=== PATIENT | female | born 2000 | race Two or more races ===

== ENCOUNTER 2024-11-17 16:06 | Emergency (ER) | payer OTHER ==
[~2024-11-17] VITALS: Ht 149.9 cm; Wt 52.6 kg
[2024-11-17] MEDS ORDERED: PRENATAL + DHA1 EAC1 (16:57)
[2024-11-17] MEDS ORDERED: FOLIC ACID20 MG (16:58)
[2024-11-17 17:26] LABS: HEMATOCRIT 36.2 % (36.0-45.00); HEMOGLOBIN 12.5 g/dL (12.0-15.00); MEAN CELL VOLUME 88.5 fL (80.00-100.00); MEAN CORPUSCULAR HEMOGLOBIN 30.6 pg (27.00-32.0); MEAN CORPUSCULAR HGB CONC 34.6 g/dl (32.0-36.0); PLATELET COUNT 261 K/uL (150-450); RED BLOOD COUNT 4.09 M/uL (4.00-6.00); RED CELL DISTRIBUTION WIDTH 12.6 % (11.5-14.5)
[2024-11-17 17:58] LABS: URINE APPEARANCE Turbid; URINE BILIRRUBIN Negative (NEGATIVE); URINE COLOR Yellow; URINE GLUCOSE Negative (NEGATIVE); URINE KETONE Negative (NEGATIVE); URINE LEUKOCYTE Moderate; URINE NITRATE Negative; URINE PROTEIN Negative (NEGATIVE)
[2024-11-17 18:01] LABS: URINE BACTERIA 1331.5 uL (0.0-1933); URINE EPITHELIAL CELLS 42.1 uL (0.0-38.8); URINE RBC 61.8 uL (0.0-20.8); URINE WBC 104.4 uL (0.0-23.2)
[2024-11-17 18:04] LABS: ALBUMIN 3.7 gm/dL (3.4-5.0); BILIRUBIN TOTAL 0.68 mg/dL (0.3-1.2); CREATININE SERUM 0.65 mg/dL (0.55-1.02); GFR 115.06; GLOBULINA 3.6 G/DL (2.4-3.5); POTASSIUM 3.81 mEq/L (3.5-5.1); TOTAL PROTEIN 7.3 gm/dL (6.4-8.2)
[2024-11-17 18:36] LABS: URINE BLOOD Trace; URINE CRYSTALS MODERATE /HPF; URINE MUCUS SCANT
[2024-11-17 18:37] LABS: URINE YEAST FEW /hpf
[2024-11-17] MEDS ORDERED: AMOX1TAB5 PO (19:04)
[2024-11-17] MEDS ORDERED: PEPCID AC20 MG PO (19:04)
== END 2024-11-17 19:36 | disposition home or self-care (01) ==
LOC: ER 16:08
PROVIDERS: General Practice
DX: O23.41 Unspecified infection of urinary tract in pregnancy, first trimester (principal); N39.0 Urinary tract infection, site not specified; Z3A.01 Less than 8 weeks gestation of pregnancy

== ENCOUNTER 2025-02-03 23:57 | Emergency (ER) | payer OTHER ==
[~2025-02-03] VITALS: Ht 152.4 cm; Wt 55.8 kg
[~2025-02-03 23:57] MED LIST: AMOX1TAB5 PO; FOLIC ACID20 MG; PEPCID AC20 MG PO; PRENATAL + DHA1 EAC1
[2025-02-04 02:20] LABS: BASO % 0.3 % (0.1-1.2); EOS # 0.35 (0.04-0.54); HEMATOCRIT 30.1 % (34.1-44.9); HEMOGLOBIN 10.4 g/dL (11.2-15.7); LYMPH # 2.56 (1.18-3.74); MEAN CORPUSCULAR HEMOGLOBIN 30.4 pg (25.6-32.2); MONO # 0.96 (0.24-0.82); MONO % 8.2 % (4.7-12.5); NEUT % 65.3 % (34.0-71.1); PLATELET COUNT 246 K/uL (163-369); RED BLOOD COUNT 3.42 M/uL (3.93-5.22); RED CELL DISTRIBUTION WIDTH 12.5 % (11.6-14.4)
[2025-02-04 02:37] LABS: COVID-19 AG NEGATIVE (NEGATIVE); INFLUENZA A AG NEGATIVE (NEGATIVE)
== END 2025-02-04 03:14 | disposition home or self-care (01) ==
LOC: ER 23:57
DX: J06.9 Acute upper respiratory infection, unspecified (principal); Z20.822 Contact with and (suspected) exposure to COVID-19

== ENCOUNTER 2025-02-16 17:18 | Outpatient (CLI) | payer OTHER | END 2025-02-16 17:25 | disposition home or self-care (01) | LOC: NST 17:18 | PROVIDERS: ATTEND Obstetrics & Gynecology | DX: Z34.83 Encounter for supervision of other normal pregnancy, third trimester (principal) ==

== ENCOUNTER 2025-06-01 16:01 | Outpatient (CLI) | payer OTHER ==
[2025-06-01 15:05] VITALS: BP 107/74
[2025-06-01] MEDS ORDERED: RINGERS SOLUTION,LACTATED 1,000 ML IV SCH (16:30)
[2025-06-01 17:06] LABS: BASO % 0.3 % (0.1-1.2); EOS # 0.10 (0.04-0.54); EOS % 1.0 % (0.7-7.0); LYMPH # 1.98 (1.18-3.74); LYMPH % 19.2 % (19.3-53.1); MEAN PLATELET VOLUME 11.10 fl (9.4-12.4); MONO # 0.91 (0.24-0.82); MONO % 8.8 % (4.7-12.5); NEUT # 7.06 (1.56-6.13); NEUT % 68.4 % (34.0-71.1); RED CELL DISTRIBUTION WIDTH 13.2 % (11.6-14.4)
[2025-06-01 17:07] LABS: URINE APPEARANCE Cloudy; URINE BILIRRUBIN Negative (NEGATIVE); URINE BLOOD Negative; URINE COLOR Yellow; URINE GLUCOSE Negative (NEGATIVE); URINE KETONE Trace (NEGATIVE); URINE LEUKOCYTE Moderate; URINE NITRATE Negative; URINE PROTEIN Trace (NEGATIVE); URINE UROBILINOGEN 0.2 E.U./dl
[2025-06-01 17:11] LABS: URINE BACTERIA 5499.5 uL (0.0-1933); URINE EPITHELIAL CELLS 96.4 uL (0.0-38.8); URINE RBC 13.0 uL (0.0-20.8); URINE WBC 104.4 uL (0.0-23.2)
[2025-06-01] MEDS ORDERED: PRENATABS RX T1 EACH PO (17:21)
[2025-06-01 17:34] LABS: URINE CAST 0.43 uL (0.0-1.40)
[2025-06-01 17:35] LABS: URINE CRYSTALS MANY /HPF
[2025-06-01] MEDS ORDERED: CEFAZOLIN SODIUM 1,000 MG VIAL ONE (18:09)
[2025-06-01] MEDS ORDERED: CEFAZOLIN SODIUM 1,000 MG VIAL IV SCH (18:30)
[2025-06-01 19:34] VITALS: BP 112/75
[2025-06-01 23:33] VITALS: BP 92/50
[2025-06-02 04:14] VITALS: BP 88/50
[2025-06-02 06:36] VITALS: BP 92/60; O2SAT 97
[2025-06-02 10:36] VITALS: BP 92/60
== END 2025-06-02 10:56 | disposition home or self-care (01) ==
LOC: OBS/DEL 16:01
PROVIDERS: Student in an Organized Health Care Education/Training Program; ATTEND Specialist
DX: O98.813 Other maternal infectious and parasitic diseases complicating pregnancy, third trimester (principal); O23.43 Unspecified infection of urinary tract in pregnancy, third trimester; N39.0 Urinary tract infection, site not specified; Z3A.35 35 weeks gestation of pregnancy

== ENCOUNTER 2025-06-20 01:58 | Inpatient (IN) | payer OTHER ==
[~2025-06-20] VITALS: Ht 149.9 cm; Wt 63.5 kg
[2025-06-20 01:29] VITALS: BP 107/72
[~2025-06-20 01:58] MED LIST changes: +PRENATABS RX T1 EACH PO
[2025-06-20] MEDS ORDERED: RINGERS SOLUTION,LACTATED 1,000 ML IV SCH (02:15)
[2025-06-20 03:03] LABS: BASO % 0.2 % (0.1-1.2); EOS # 0.07 (0.04-0.54); EOS % 0.6 % (0.7-7.0); LYMPH # 2.25 (1.18-3.74); LYMPH % 19.8 % (19.3-53.1); MEAN PLATELET VOLUME 11.60 fl (9.4-12.4); MONO # 0.96 (0.24-0.82); MONO % 8.4 % (4.7-12.5); NEUT # 7.92 (1.56-6.13); NEUT % 69.7 % (34.0-71.1); RED CELL DISTRIBUTION WIDTH 12.7 % (11.6-14.4)
[2025-06-20 03:05] LABS: URINE APPEARANCE Clear; URINE BILIRRUBIN Negative (NEGATIVE); URINE BLOOD Negative; URINE COLOR Yellow; URINE GLUCOSE Negative (NEGATIVE); URINE KETONE Negative (NEGATIVE); URINE LEUKOCYTE Trace; URINE NITRATE Negative; URINE PROTEIN Negative (NEGATIVE); URINE UROBILINOGEN 0.2 E.U./dl
[2025-06-20 03:09] LABS: URINE BACTERIA 115.1 uL (0.0-1933); URINE EPITHELIAL CELLS 7.2 uL (0.0-38.8); URINE WBC 16.1 uL (0.0-23.2)
[2025-06-20 03:12] LABS: URINE CAST 0.14 uL (0.0-1.40); URINE RBC 0.8 uL (0.0-20.8)
[2025-06-20 03:21] LABS: INR < 0.93
[2025-06-20] MEDS ORDERED: MORPHINE SULFATE 4 MG/ML CARTRIDGE IV STA (04:01)
[2025-06-20 07:28] VITALS: BP 111/71
[2025-06-20 08:44] VITALS: BP 111/71
[2025-06-20] MEDS ORDERED: OXYTOCIN 500 ML IV SCH (09:00)
[2025-06-20] MEDS ORDERED: MORPHINE SULFATE 4 MG/ML CARTRIDGE IV ONE (10:30)
[2025-06-20 11:56] VITALS: BP 116/78
[2025-06-20] MEDS ORDERED: ERYTHROMYCIN BASE OPHT 1GM EACH TUBE OP ONE ×2 (12:50→16:15)
[2025-06-20] MEDS ORDERED: OXYTOCIN 20 UNITS/1000ML RL PIGGYBAG IV ONE (12:51)
[2025-06-20] MEDS ORDERED: CHLORHEXIDINE GLUCONATE 120 ML BOTTLE TOP ONE ×2 (12:51→16:15)
[2025-06-20] MEDS ORDERED: LIDOCAINE HCL 1% 10ML VIAL ONE (12:51)
[2025-06-20] MEDS ORDERED: TERBUTALINE SULFATE 1 MG/ML AMPUL ONE (13:12)
[2025-06-20] MEDS ORDERED: TERBUTALINE SULFATE 1 MG/ML AMPUL SUBCUTANEO STA (13:34)
[2025-06-20 15:32] VITALS: BP 100/66
[2025-06-20 16:57] VITALS: BP 118/75
[2025-06-20 20:47] LABS: BASO % 0.1 % (0.1-1.2); EOS # 0.00 (0.04-0.54); EOS % 0.0 % (0.7-7.0); LYMPH # 0.91 (1.18-3.74); LYMPH % 5.8 % (19.3-53.1); MEAN PLATELET VOLUME 11.60 fl (9.4-12.4); MONO # 1.00 (0.24-0.82); MONO % 6.4 % (4.7-12.5); NEUT # 13.54 (1.56-6.13); NEUT % 87.0 % (34.0-71.1); RED CELL DISTRIBUTION WIDTH 12.6 % (11.6-14.4)
[2025-06-21 00:44] VITALS: BP 103/66
[2025-06-21 08:00] VITALS: BP 96/64
[2025-06-21 16:41] VITALS: BP 96/60
[2025-06-22 00:22] VITALS: BP 108/70
[2025-06-22 08:00] VITALS: BP 104/69
== END 2025-06-22 11:56 | disposition home or self-care (01) | DRG 807 ==
LOC: OBS/DEL 01:58 → OB/GYN 08:51 → LDR 08:51 → OB/GYN 15:30
PROVIDERS: Obstetrics & Gynecology; ADMIT Specialist; ATTEND Specialist
PROC: 10E0XZZ Delivery of Products of Conception, External Approach (ICD-10-PCS; principal; 2025-06-20)
PROC: 0W8NXZZ Division of Female Perineum, External Approach (ICD-10-PCS; 2025-06-20)
PROC: 4A1HXCZ Monitoring of Products of Conception, Cardiac Rate, External Approach (ICD-10-PCS; 2025-06-20)
DX: O80 Encounter for full-term uncomplicated delivery (principal); Z37.0 Single live birth; Z3A.37 37 weeks gestation of pregnancy